=== PATIENT | female | born 1975 ===

== ENCOUNTER → 2019-01-23 21:12 | Outpatient (REF) | payer OTHER, SELFPAY ==
[2019-01-23 21:48] LABS: Add Manual Diff / Slide Review NO; Basophils Absolute Auto 100 /uL (0-100); Basophils Percent Auto 0.9 % (0-2); Eosinophils Absolute Auto 100 /uL (0-450); Eosinophils Percent Auto 1.6 % (2-4); Hemoglobin 13.8 g/dL (12.0-16.0); Lymphocytes Absolute Auto 1900 /uL (1100-4500); Lymphocytes Percent Auto 31.2 % (25-40); Mean Corpuscular HGB Conc 33.7 % (30-36); Monocytes Absolute Auto 300 /uL (0-900); Monocytes Percent Auto 4.7 % (3-14); Neutrophils Absolute Auto 3700 /uL (1500-7000); Neutrophils Percent Auto 61.6 % (50-75); Platelet Count 265 X10^3/uL (150-400); Red Blood Cell Count 4.45 X10^6/uL (4.0-5.2); Red Cell Distribution Width 13.1 % (11.6-14.8)
[2019-01-23 22:41] LABS: TSH w/ Reflex to FT4 1.27 uIU/mL (0.47-4.68)
[2019-01-23 22:47] LABS: Ferritin 37.7 ng/mL (6.27-137)
== END ==
LOC: LAB 21:12
PROVIDERS: Visit Provider Naturopath
DX: F90.0 Attention-deficit hyperactivity disorder, predominantly inattentive type (principal); F50.81 Binge eating disorder; R53.83 Other fatigue; L65.9 Nonscarring hair loss, unspecified
CPT/HCPCS: 36415; 82728; 84443; 85025